=== PATIENT | male | born 1955 | race Caucasian/White ===

== ENCOUNTER 2023-08-18 13:06 | Emergency (ER) | payer MEDICARE ==
[2023-08-18] MEDS ORDERED: LIDOcaine HCl 1% (Local Anesth.) 20 ML VIAL STI STA (13:19)
[2023-08-18] MEDS ORDERED: Diph, Acellular Pertussis, Tet 0.5 ML/VIAL (Tdap) SDV IM ONE (13:20)
[2023-08-18] MEDS ORDERED: SODIUM CHLORIDE 500 ML BTL IR ONE (13:20)
[2023-08-18] MEDS ORDERED: POVIDONE IODINE 0.5 OZ/BTL TOP ONE (13:20)
[2023-08-18] MEDS ORDERED: NEOMYCIN-BACITRACIN-POLYMYXIN 0.5 GM/PAK PAK TOP ONE (13:20)
[2023-08-18] MEDS ORDERED: KEFLEX500 MG PO (14:22)
[2023-08-18 14:30] VITALS: BP 136/77
== END 2023-08-18 14:44 | disposition home or self-care (01) ==
LOC: ED 13:06
PROC: 0JQG3ZZ Repair Right Lower Arm Subcutaneous Tissue and Fascia, Percutaneous Approach (ICD-10-PCS; principal; 2023-08-18)
DX: S51.811A Laceration without foreign body of right forearm, initial encounter (principal); I10 Essential (primary) hypertension; J44.9 Chronic obstructive pulmonary disease, unspecified; W20.8XXA Other cause of strike by thrown, projected or falling object, initial encounter; Y93.89 Activity, other specified; Y92.009 Unspecified place in unspecified non-institutional (private) residence as the place of occurrence of the external cause